=== PATIENT | male | born 1965 | race Caucasian/White ===

== ENCOUNTER → 2018-01-07 16:36 | Outpatient (CLI) | payer OTHER, SELFPAY ==
--- NOTE | 2018-01-07 | DI.MRI.S_ITS ---
PROCEDURE: MR CERVICAL SPINE WO CON INDICATIONS: Posterior left sided neck pain centered at the base of the skull TECHNIQUE: Noncontrast sagittal T1 spin echo and T2 fast spin echo, sagittal STIR, foraminal oblique sagittal T2 fast spin echo, and axial gradient echo or T2 fast spin echo through the cervical spine. COMPARISON: None. FINDINGS: Image quality: Diagnostic, with note made of motion artifact. Images are repeated, with some improvement. Alignment and Curvature: There is straightening of the normal cervical lordosis. No focal AP alignment abnormality is seen. Bone Marrow: Marrow demonstrates normal overall signal. Spinal Cord: Visualized spinal cord has normal size and signal. No cerebellar tonsillar herniation. Paraspinous Soft Tissues: No paravertebral masses. Prevertebral soft tissues are normal in thickness. C2-C3: Normal appearance. C3-C4: No significant abnormality is seen. C4-C5: Level within normal limits. C5-C6: There is mild loss of disc height. Moderate disc osteophyte complex is seen, which is eccentric to the left. There is moderate left-sided and mild right-sided neural foraminal narrowing seen. Mild central canal narrowing is seen. C6-C7: Mild loss of disc height is seen. Moderate disc osteophyte complex is seen, which is eccentric to the left. There is moderate left-sided and no right-sided neural foraminal narrowing seen. Mild central canal narrowing is seen. C7-T1: No significant abnormality is seen. IMPRESSION: Focal degenerative change is seen at C5-C6 and C6-C7. Dictated by: Sonido Andrews M.D. on 01/10/2018 at 9:45 Approved by: Sonido Andrews M.D. on 01/10/2018 at 10:01
== END ==
PROVIDERS: PCP Specialist; Visit Provider Orthopaedic Surgery
DX: M50.322 Other cervical disc degeneration at C5-C6 level (principal)
CPT/HCPCS: 72141

== ENCOUNTER → 2019-11-28 08:06 | Outpatient (CLI) | payer OTHER, SELFPAY ==
--- NOTE | 2019-11-28 | DI.MRI.S_ITS ---
PROCEDURE: MR LOWER LEG RT WO CON INDICATIONS: Pain in right lower leg TECHNIQUE: Noncontrast coronal and sagittal T1 spin echo and STIR; axial T1 spin echo and T2 fast spin echo with fat saturation through the lower extremities, optimized on axial and sagittal imaging for right-sided evaluation. Bilateral coronal imaging was obtained. COMPARISON: None. FINDINGS: Image quality: Excellent. Bones: The visualized bone marrow demonstrates normal signal on all sequences. The overlying cortex appears intact. No fractures lines or intra-osseous lesions. Soft tissues: The scanned muscles demonstrate normal overall bulk and internal signal. Subcutaneous tissues appear normal as well. No soft tissue masses are present. IMPRESSION: Source of asymmetric right-sided pain is not identified. Note is made of symmetric mild knee joint osteoarthritis is indicated by medial compartment knee joint interspace narrowing. No underlying infection or neoplasm is found, no vascular abnormality is seen. Dictated by: Rip Spencer M.D. on 11/28/2019 at 9:25 Approved by: Rip Spencer M.D. on 11/28/2019 at 9:29
== END ==
PROVIDERS: PCP Family Medicine; Referring Provider Family Medicine; Visit Provider Family Medicine
DX: M79.661 Pain in right lower leg (principal); R26.89 Other abnormalities of gait and mobility; M17.11 Unilateral primary osteoarthritis, right knee
CPT/HCPCS: 73718

== ENCOUNTER → 2020-01-09 17:01 | Outpatient (CLI) | payer OTHER, SELFPAY ==
--- NOTE | 2020-01-09 | DI.MRI.S_ITS ---
PROCEDURE: MR LUMBAR SPINE WO CON INDICATIONS: Radiculopathy, lumbar region TECHNIQUE: Noncontrast sagittal T1 spin echo and T2 fast echo, sagittal STIR, axial T1 and T2 fast spin echo through the lumbar spine. In cases with scoliosis, additional coronal T2 fast spin echo may be performed. COMPARISON: None. FINDINGS: Image quality: Excellent. Alignment and Curvature: Trace degenerative retrolisthesis of L5 on S1. The other vertebral bodies are normally aligned. Bone Marrow: Marrow is of normal overall signal. No acute vertebral body compression fractures. Spinal Cord: Conus medullaris terminates at the L1-L2 level. Visualized cord demonstrates normal signal and size. Paraspinous Soft Tissues: No paravertebral masses. T11-T12: Chronic disc height loss. Mild disc bulge. No canal stenosis or foraminal stenosis. T12-L1: No canal stenosis or foraminal stenosis. L1-L2: Normal appearance. L2-L3: Normal appearance. L3-L4: Left paracentral annulus tear associated with minimal left paracentral disc protrusion slightly displacing the left L4 nerve root in the left lateral recess. No foraminal stenosis. L4-L5: Disc bulge. Facet and ligament hypertrophy. Borderline canal stenosis. No foraminal stenosis. foraminal stenosis. L5-S1: There are 2 separate free disc fragments present, the largest of which is in the right lateral recess at the level of the disc, impinging on the right S1 nerve root in the right lateral recess. It measures 0.8 x 0.8 x 0.4 cm. A smaller disc fragment slightly more medially and slightly more posterior in the right lateral recess measures 4 mm. Bilateral facet hypertrophy. No foraminal stenosis. IMPRESSION: 1. At L5-S1, there are 2 separate free disc fragments in the right lateral recess. There is impingement on the right S1 nerve root in the right lateral recess. 2. L3-L4, there is left paracentral annulus tear with minimal left paracentral disc protrusion, slightly displacing the left L4 nerve root in the left lateral recess. 3. Borderline canal stenosis at L4-L5. Dictated by: Jaime Pham M.D. on 01/09/2020 at 17:58 Approved by: Jaime Pham M.D. on 01/09/2020 at 18:04
== END ==
PROVIDERS: PCP Family Medicine; Referring Provider Family Medicine; Visit Provider Family Medicine
DX: M51.16 Intervertebral disc disorders with radiculopathy, lumbar region (principal)
CPT/HCPCS: 72148

== ENCOUNTER → 2020-06-04 16:53 | Outpatient (CLI) | payer OTHER, SELFPAY ==
--- NOTE | 2020-06-04 | DI.MRI.S_ITS ---
PROCEDURE: MR CERVICAL SPINE WO CON INDICATIONS: RADICULAR PAIN AND DEGENERATION TECHNIQUE: Noncontrast sagittal T1 spin echo and T2 fast spin echo, sagittal STIR, foraminal oblique sagittal T2 fast spin echo, and axial gradient echo or T2 fast spin echo through the cervical spine. COMPARISON: [facility], CR, XR CERVICAL SPINE 2 OR 3 VIEWS, 12/29/2017, 14:08. [facility], , MR CERVICAL SPINE WO CON, 01/07/2018, 17:13. FINDINGS: Image quality: This examination is limited by involuntary motion artifact. Alignment and Curvature: There is overall straightening of the normal cervical lordosis. No focal AP alignment abnormality is seen. Bone Marrow: Marrow demonstrates normal overall signal. Spinal Cord: Visualized spinal cord has normal size and signal. No cerebellar tonsillar herniation. Paraspinous Soft Tissues: No paravertebral masses. Prevertebral soft tissues are normal in thickness. C2-C3: Normal appearance. C3-C4: No significant abnormality is seen at this level. C4-C5: Normal appearance. C5-C6: Tmwg-[id number] loss of disc height is seen. Loss of disc signal is seen. Moderate generalized disc osteophyte complex is seen. There is a central disc osteophyte protrusion seen. There is moderate right-sided and [id number] left-sided facet hypertrophy seen. There is at least moderate right-sided and moderate left-sided neural foraminal narrowing seen. Mild to moderate central canal narrowing is seen, with minimal mass effect upon the ventral spinal cord. These imaging findings have progressed compared to the prior study. C6-C7: [id number] loss of disc height and disc signal can be seen. Moderate disc osteophyte complex is seen, which is eccentric to the left, with a left lateral recess/foraminal disc osteophyte protrusion, as on series 4, image 33. Mild to moderate facet hypertrophy is seen. There is moderate left-sided and no significant right-sided neural foraminal narrowing seen. Mild central canal narrowing is seen at this level. When comparison is made with the prior examination, these findings are similar. C7-T1: Normal appearance. IMPRESSION: Lower cervical spine degenerative changes are seen, with slight interval progression at C5-C6 compared to 2018. Dictated by: Sonido Andrews M.D. on 06/04/2020 at 17:41 Approved by: Sonido Andrews M.D. on 06/04/2020 at 17:45
--- NOTE | 2020-06-04 | DI.MRI.S_ITS ---
PROCEDURE: MR SHOULDER RT WO CON INDICATIONS: Progressing right shoulder pain with decreased range of motion TECHNIQUE: Noncontrast oblique coronal T2 fast spin echo with fat saturation, oblique sagittal T1 spin echo and T2 fast spin echo with fat saturation, axial T1 spin echo and T2 fast spin echo with fat saturation through the shoulder. COMPARISON: None. FINDINGS: Image quality: Excellent. Rotator cuff: Tendinosis and low to moderate grade articular and bursal surface partial thickness tear involving distal supraspinatus at its insertion on the humeral head is seen extending to musculotendinous junction. Distal infraspinatus tendinosis and low-grade articular surface partial-thickness tear is seen. Distal subscapularis tendinosis is also noted. No full-thickness rotator cuff tendon rupture. Sagittal images demonstrate no significant muscle atrophy. Bones and bursae: No bone marrow contusions or fractures. Moderate acromioclavicular joint osteoarthritis is seen with downward osteophyte formation depressing the musculotendinous junction of supraspinatus.. No pathologic subacromial-subdeltoid or subcoracoid bursal fluid is present. Capsule and soft tissues: In the absence of intra-articular contrast, the labrum and glenohumeral ligaments appear intact. The long head of the biceps tendon is mildly thickened intra-articularly. The rotator interval appears normal, without fibrosis. The coracohumeral ligament is normal in thickness. IMPRESSION: 1. Tendinosis and low to moderate grade articular and bursal surface partial thickness tear involving distal supraspinatus extending to musculotendinous junction. Distal infraspinatus tendinosis and low-grade articular surface partial-thickness tear. Distal subscapularis tendinosis. 2. Moderate acromioclavicular joint osteoarthritis. 3. No gross focal labral tear. 4. Tendinosis involving proximal intra-articular portion of long head of biceps. Dictated by: Shan Kenny M.D. on 06/05/2020 at 9:23 Approved by: Shan Kenny M.D. on 06/05/2020 at 9:31
== END ==
PROVIDERS: PCP Family Medicine; Referring Provider Family Medicine; Visit Provider Family Medicine
DX: M50.322 Other cervical disc degeneration at C5-C6 level (principal); M50.323 Other cervical disc degeneration at C6-C7 level; S46.811A Strain of other muscles, fascia and tendons at shoulder and upper arm level, right arm, initial encounter; M19.011 Primary osteoarthritis, right shoulder; M67.88 Other specified disorders of synovium and tendon, other site
CPT/HCPCS: 72141; 73221

== ENCOUNTER → 2020-07-24 09:24 | Outpatient (CLI) | payer OTHER, SELFPAY ==
[2020-07-24 11:57] LABS: COVID19 -Nasal RAPID Negative (Negative)
== END ==
PROVIDERS: PCP Family Medicine; Visit Provider Surgery
DX: Z01.812 Encounter for preprocedural laboratory examination (principal); Z20.828 Contact with and (suspected) exposure to other viral communicable diseases
CPT/HCPCS: 87635; C9803

== ENCOUNTER 2020-07-25 12:35 | Day surgery (SDC) | payer OTHER, SELFPAY ==
--- NOTE | 2020-07-25 | PATH_ITS ---
[facility] Accession Number: [id number] . 01 Material submitted: . rectum - RECTAL POLYP . 02 Diagnosis: Rectum, Polyp, Biopsy: Tubular adenoma. MRV 07/29/2020 1451 Local . 02 Electronically signed: . Aurea Murry MD, Pathologist NPI- [id number] . 01 Gross description: . RECTAL POLYP: Received in formalin is 1 fragment(s) of lyle, soft tissue measuring 0.4 x 0.4 x 0.3 cm submitted entirely in 1 cassette(s) /QBJ 07/26/2020 0732 Local . 02 Pathologist provided ICD-10: D12.8 . 02 CPT . 877361 Performed at: [address] [facility] [address] [id number] MD Jeremy Castillo MD Phone: [phone] Performed at: 02 [facility] [address] [place], [place] [id number] MD Aurea Murry MD Phone: [phone]
[2020-07-25] MEDS: LACTATED RINGERS 1,000 ML 200 ML IV (12:50)
[2020-07-25 13:04] VITALS: BP 135/88; PULSE 80; RESP 16; TEMP 36.4; O2SAT 97; BMI 35.9
--- NOTE | 2020-07-25 13:44 | PM.HP.1 ---
History of Present Illness History of Present Illness Date Patient Seen: 07/25/20 Time Patient Seen: 13:44 Chief complaint: ALC Narrative: The patient presents for colorectal sreening. They have never had any previous examination for such. No personal or family history of colon cancer. On further history denies any recent gastrointestinal symptoms. No nausea, vomiting, abdominal pain, loss of appetite, unexplained weight loss, change in bowel habits, diarrhea, constipation, melena, hematochezia, or bright red blood per rectum. Patient History Medical History Obesity Small bowel obstruction Surgical History H/O exploratory laparotomy Family & Social History Social History: household members spouse Tobacco & Substance use: Smoking Status Never smoker alcohol intake frequency holiday/special occasion Meds Home Medications and Allergies Home Medications Medication Instructions Recorded Confirmed Type No Known Home Medications 07/25/20 07/25/20 History Allergies Allergy/AdvReac Type Severity Reaction Status Date / Time No Known Drug Allergies Allergy Verified 07/25/20 12:49 Review of Systems Review of Systems Narrative: A 10 point review of systems is negative except as noted in the HPI Exam Vital Signs (past 8 hours): - 07/25/20 13:04 Temperature 97.5 F L Pulse Rate 80 Respiratory Rate 16 Blood Pressure 135/88 Pulse Oximetry 97 Oxygen Delivery Method Room Air Narrative Exam Narrative: General-no acute distress, obese male HEENT-moist mucous membranes, no scleral icterus Neck-supple, no lymphadenopathy Chest- non labored respirations, clear to auscultation bilaterally Cardiac-regular rate no peripheral edema Abdomen-soft, nontender, non distended Extremities-warm, well perfused Neurological-alert and oriented, no focal deficits Assessment & Plan Assessment & Plan narrative: The patient requires colorectal screening and colonoscopy is recommended. Technical details were discussed. Risks, benefits, alternatives explained. Risks including but not limited to myocardial infarction, aspiration, bleeding, pain, missed lesion, incomplete examination, need for further radiographic studies, colonic perforation, and need for major abdominal surgery were discussed. All questions were answered to their satisfaction, and they are in agreement with this plan.
[2020-07-25] MEDS: MIDAZOLAM 5 MG/5 ML VIAL IV ×2 (13:49→14:26)
[2020-07-25] MEDS: fentaNYL 250 MCG/5 ML INJ IV (13:49)
[2020-07-25 14:32] VITALS: BP 115/75; PULSE 71; RESP 12; TEMP 36.4; O2SAT 94
--- NOTE | 2020-07-25 14:32 | PM.OP.ENDO ---
Operative Date/Time/Diagnoses Date of procedure: 07/25/20 Time of procedure: 14:32 Pre-op diagnosis: Screening colonoscopy Post-op diagnosis: same Procedure & Clinicians Study performed: Colonoscopy Polypectomy Same procedure as scheduled: Yes Indications: 54-year-old man no prior colonoscopy presents for routine screening Surgeon: Julio Hernandez Procedure Notes Procedure in detail: Medications: Conscious sedation using 7mg IV midazolam and 200mcg IV of fentanyl The history and physical was performed/updated and the patient is ASA class is 2. The procedure was discussed in detail with the patient. Potential risks complications including infection, bleeding, missed diagnosis, perforation, need for surgery, and were explained. Their questions were answered and informed consent was obtained. Patient was brought to the procedure room and placed standard monitoring equipment. The patient's vital signs were monitored continuously throughout the entire procedure. Prior to starting time-out was performed. The patient was placed in the left lateral recumbent position. Procedural sedation was administered. Examination began with a thorough inspection of the perianal area there was no evidence of fissures, fistulae, external hemorrhoids or cutaneous malignancy. The colonoscopy scope was then placed into the anal canal and was advanced to the cecum, which was identified by the ileocecal valve, the appendiceal orifice and the confluence of the taenia. The scope was then slowly withdrawn examining colon thoroughly in all directions, irrigating it of any residual stool. 5 mm rectal polyp removed with cold snare. Sigmoid diverticulosis The patient tolerated the procedure well. They will be discharged once criteria are met. The prep was of good/excellent quality. The withdrawl time was 7 minutes. The sedation time was 38 minutes. Findings: diverticulosis and polyp Specimen(s): other (Rectal polyp) Complications: none Impression: Colonic polyp Post-procedure Recommendations: Colonscopy in 5 years Disposition: same day surgery
[2020-07-25 14:38] VITALS: BP 118/78; PULSE 75; RESP 11; O2SAT 92
[2020-07-25 14:43] VITALS: BP 109/74; PULSE 88; RESP 22; O2SAT 94
[2020-07-25 14:49] VITALS: BP 118/74; PULSE 75; RESP 10; O2SAT 94
[2020-07-25 14:54] VITALS: BP 120/80; PULSE 72; RESP 17; O2SAT 95
== END 2020-07-25 15:12 | disposition home or self-care (01) ==
PROVIDERS: PCP Family Medicine; Referring Provider Family Medicine; Visit Provider Surgery
PROC: 0DJD8ZZ Inspection of Lower Intestinal Tract, Via Natural or Artificial Opening Endoscopic (ICD-10-PCS; CPT 45378; principal; 2020-07-25 13:45)
DX: Z12.11 Encounter for screening for malignant neoplasm of colon (principal); E66.9 Obesity, unspecified; K57.30 Diverticulosis of large intestine without perforation or abscess without bleeding; D12.8 Benign neoplasm of rectum
CPT/HCPCS: 45385; 99152; 99153; J2250; J3010